=== PATIENT | male | born 1970 | race Two or more races ===

== ENCOUNTER 2025-02-19 00:22 | Emergency (ER) | payer OTHER, SELFPAY ==
[2025-02-19 00:24] VITALS: BMI 33.4
[2025-02-19 00:36] VITALS: BP 116/74; PULSE 87; RESP 16; TEMP 36.7; O2SAT 95
--- NOTE | 2025-02-19 00:46 | XR_ITS ---
Examination: CT brain head without contrast. 2-D sagittal coronal reconstructions Date and time of exam:February 19, 2025, 0056 hrs. Indications: Patient fell one hour ago with injury to the head, laceration to the posterior head Comparison: July 13, 2006 CTDI: vol (mGy):65.70. DLP: (mGycm):1400. Technique: Multiple CT axial sections of the brain have been obtained, 5 mm slice thickness. Contrast has not been administered. 2-D sagittal, coronal reconstructions have been obtained Low dose protocols were performed. One or more of the following dose reduction techniques were used; automated exposure control, adjustment of the mA and/or KV according to patient size, use of iterative reconstruction technique. Findings: No significant ventricular enlargement. Intra-axial or extra-axial hemorrhage density is not seen. No mass effect or midline shift Basal cisterns are not remarkable. Fourth ventricle is midline. Cranial vault intact. Impression: Negative for acute hemorrhage, mass effect or midline shift
--- NOTE | 2025-02-19 01:11 | PD.EDRME ---
Rapid Medical Screening Exam [facility] Arrival date/time: 02/19/25 00:22 This is a case of a 55-year-old male with no medical history came in in the emergency room due to laceration on the scalp occipital area history of present illness started 1 hour prior to arrival in the emergency room patient has alcoholic intake and fell and landed on his head patient sustained a scalp laceration no contusion on the occipital area patient did not have any loss of consciousness denies any chest neck or abdominal injury Chief Complaint: Head Injury Time Seen by Provider: 02/19/25 00:26 Vital signs: Vital Signs Temperature 98.1 F 02/19/25 00:36 Pulse Rate 87 02/19/25 00:36 Respiratory Rate 16 02/19/25 00:36 Blood Pressure 116/74 02/19/25 00:36 Pulse Oximetry (%) 95 02/19/25 00:36 Oxygen Delivery Method Room Air 02/19/25 00:36
--- NOTE | 2025-02-19 01:42 | PRELIM_ITS ---
CT scan of the head without intravenous contrast (axial sections with sagittal and coronal reformats) February 19, 2025 0056 hours Clinical History: Head injury No prior study is available for comparison. Findings: No evidence of intracranial hemorrhage, mass effect or midline shift. The ventricles and CSF spaces are unremarkable. The calvarium is intact. Cavum septum pellucidum and vergae are seen, representing an anatomic variant.The mastoid air cells and the visualized paranasal sinuses are clear. Impression: No evidence of intracranial hemorrhage, midline shift or calvarial fracture. Report Electronically Signed By: Michelet Lopez 02/19/2025 1:41:15 AM [EST]
== END 2025-02-19 01:12 | disposition left against medical advice (07) ==
PROVIDERS: Emergency Provider Emergency Medicine
DX: S01.01XA Laceration without foreign body of scalp, initial encounter (principal); W19.XXXA Unspecified fall, initial encounter; Z53.29 Procedure and treatment not carried out because of patient's decision for other reasons
CPT/HCPCS: 70450; 99283

== ENCOUNTER → 2025-04-02 | Outpatient (CLI) | payer BC, SELFPAY ==
--- NOTE | 2025-04-02 | XR_ITS ---
Examination: Knee, right, 3 views Technique: Knee AP, lateral, oblique 3 views Date and time of exam: April 02, 2025, 0749 hours INDICATIONS: Knee pain years, anterior cruciate ligament repair 10 years ago FINDINGS: Findings of prior anterior cruciate ligament repair Mild osteopenia. Moderate tricompartment osteoarthritis. No fracture IMPRESSION: Moderate tricompartment osteoarthritis
--- NOTE | 2025-04-02 | XR_ITS ---
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
--- NOTE | 2025-04-02 | XR_ITS ---
Examination: Forearm, right, 2 views. Technique: Forearm, AP, lateral 2 views Date and time of exam: April 02, 2025, 0749 hours INDICATIONS: Right forearm pain 2 weeks FINDINGS: Mild osteoarthritis at the elbow joint No fracture On the lateral view the distal ulna is dorsally positioned, clinical correlation advised IMPRESSION: Mild osteoarthritis at the elbow
--- NOTE | 2025-04-02 | XR_ITS ---
Examination: Wrist, right 3 views Technique: Wrist AP, oblique, lateral 3 views Date and time of exam: April 02, 2025, 0749 hours INDICATIONS: Right wrist pain beginning 2 weeks ago FINDINGS: Mild narrowing radiocarpal joint, navicular trapezium joint, first carpometacarpal joint No fracture. No avascular necrosis IMPRESSION: Mild osteoarthritis
[2025-04-02 09:23] LABS: Basophils # (Auto) 0.1 Thou/mm3 (0.0-0.2); Basophils % (Auto) 1 % (0-2.5); Eosinophils # (Auto) 0.7 Thou/mm3 (0.0-0.5); Eosinophils % (Auto) 7 % (0-10); Hematocrit 48.3 % (41.0-53.0); Hemoglobin 16.2 g/dL (13.5-16.0); Immature Granulocytes Auto 0.04 Thou/mm3 (0.00-0.00); Lymphocytes # (Auto) 1.8 Thou/mm3 (1.0-4.8); Lymphocytes % (Auto) 19 % (10-50); Mean Corpuscular HGB Conc 33.5 g/dl (31.0-37.0); Mean Corpuscular Hemoglobin 29.7 pg (25.0-35.0); Mean Corpuscular Volume 89 fL (80-100); Monocytes # (Auto) 0.6 Thou/mm3 (0.0-0.8); Monocytes % (Auto) 7 % (0-12); Neutrophils # (Auto) 6.1 Thou/mm3 (1.8-7.7); Neutrophils % (Auto) 66 % (37-80); Nucleated Red Blood Cell # 0.00 Thou/mm3 (0.00-0.00); Nucleated Red Blood Cell % 0 /100 WBC (0); Platelet Count 609 Thou/mm3 (140-440); RDW Standard Deviation 44.8 fL (35.1-43.9); Red Blood Count 5.46 Miln/mm3 (4.50-5.90); White Blood Count 9.3 Thou/mm3 (3.8-10.6)
[2025-04-02 10:25] LABS: Alanine Aminotransferase 47 U/L (10-49); Albumin, Serum 4.1 gm/dL (3.5-5.0); Albumin/Globulin Ratio 1.8 (1.2-2.2); Alkaline Phosphatase 93 U/L (46-116); Anion Gap 13 (7-16); Aspartate Amino Transferase 33 U/L (0-34); BUN/Creatinine Ratio 10 Ratio (12-20); Bilirubin,Total 0.7 mg/dL (0.3-1.2); Blood Urea Nitrogen 9 mg/dL (9-23); Calcium 8.7 mg/dL (8.3-10.6); Calcium (Corrected) 8.7 mg/dL (8.5-10.1); Carbon Dioxide 24.5 mMol/L (20.0-31.0); Cardiac Risk Estimate 2.4 RATIO (4.0-6.7); Chloride 106 mMol/L (98-107); Cholesterol 182 mg/dL (132-200); Creatinine (Component) 0.9 mg/dL (0.6-1.3); Globulin 2.3 gm/dL (2.3-3.5); Glucose 92 mg/dL (74-106); Glucose Estimated Average 103 mg/dL (80-131); HDL Cholesterol 77 mg/dL (40-60); Hemoglobin A1C 5.2 % Hgb (4.8-6.0); LDL Cholesterol,Calculated 71 mg/dL (0-130); Osmolality,Calculated 283 (275-295); Potassium 4.0 mMol/L (3.4-5.1); Sodium 143 mMol/L (136-145); Thyroid Stimulating Hormone 0.68 uIU/mL (0.55-4.78); Total Protein 6.4 gm/dL (5.7-8.2); Triglycerides 172 mg/dL (30-150); eGFR > 60 See Note
== END | disposition home or self-care (01) ==
LOC: CDIM 07:26
PROVIDERS: PCP Family Medicine; Referring Provider Nurse Practitioner Family; Visit Provider Student in an Organized Health Care Education/Training Program
DX: M19.021 Primary osteoarthritis, right elbow (principal); M17.11 Unilateral primary osteoarthritis, right knee; M19.031 Primary osteoarthritis, right wrist; E78.2 Mixed hyperlipidemia; Z86.39 Personal history of other endocrine, nutritional and metabolic disease; Z82.49 Family history of ischemic heart disease and other diseases of the circulatory system; R53.83 Other fatigue
CPT/HCPCS: 36415; 73080; 73090; 73110; 73562; 80053; 80061; 83036; 84153; 84436; 84443; 85025